=== PATIENT | female | born 1960 | race Caucasian/White ===

== ENCOUNTER 2016-09-26 12:42 | Emergency (ER) | payer OTHER ==
[~2016-09-26] VITALS: Ht 157.5 cm; Wt 72.3 kg
[~2016-09-26 12:42] MED LIST: MULTI VITA-BE0.25 MG PO; [UNRECOGNIZED DRUG - OTHER] PO
[2016-09-26] MEDS ORDERED: LIDODERM 5% P1 PATCH TD (14:40)
[2016-09-26] MEDS ORDERED: FLEXERIL10 MG PO (14:40)
[2016-09-26] MEDS ORDERED: NAPROXEN500 MG PO (14:40)
[2016-09-26] MEDS ORDERED: PREDNISONE20 MG PO (14:40)
[2016-09-26 14:58] VITALS: BP 166/97
== END 2016-09-26 15:00 | disposition home or self-care (01) ==
LOC: EXP 12:42 → EME 12:42 → EXP 15:00
DX: S00.03XA Contusion of scalp, initial encounter (principal); S39.012A Strain of muscle, fascia and tendon of lower back, initial encounter; M54.16 Radiculopathy, lumbar region; M54.40 Lumbago with sciatica, unspecified side; V49.40XA Driver injured in collision with unspecified motor vehicles in traffic accident, initial encounter; M25.551 Pain in right hip
CPT/HCPCS: 72100; 73502; 99281; 99283